=== PATIENT | male | born 1935 | race Two or more races ===

== ENCOUNTER 2023-12-11 15:51 | Emergency (ER) | payer OTHER ==
[~2023-12-11] VITALS: Ht 170.2 cm; Wt 70.5 kg
[2023-12-11 16:36] VITALS: TEMP 98.8
[2023-12-11 17:27] LABS: BASOPHILS % (AUTO) 0.7 % (0.0-2.0); EOSINOPHILS % (AUTO) 0.2 % (1.0-6.0); HEMATOCRIT 29.7 % (41-53); HEMOGLOBIN 9.4 g/dL (13.5-17.5); LYMPHOCYTES # (AUTO) 0.3 K/uL (1.0-4.8); LYMPHOCYTES % (AUTO) 4.4 % (22.0-44.0); MEAN CORPUSCULAR HEMOGLOBIN 20.5 pg (26.0-34.0); MEAN CORPUSCULAR HGB CONC 31.5 G/dL (31.0-37.0); MEAN CORPUSCULAR VOLUME 65 fL (80-100); MONOCYTES # (AUTO) 0.2 K/uL (0.1-1.0); MONOCYTES % (AUTO) 2.6 % (2.0-9.0); NEUTROPHILS # (AUTO) 7.3 K/uL (1.8-7.7); PLATELET COUNT (AUTO) 253 K/uL (150-450); RED BLOOD CELL COUNT(AUTO) 4.56 MIL/uL (4.50-5.90); WHITE BLOOD COUNT (AUTO) 7.9 K/uL (4.5-11.0)
[2023-12-11 17:28] LABS: NEUTROPHILS % (AUTO) 92.1 % (40.0-70.0)
[2023-12-11 17:39] LABS: CALCIUM, TOTAL 8.7 mg/dL (8.8-10.5); CREATININE 1.52 mg/dL (0.60-1.30); POTASSIUM 4.6 mmol/L (3.5-5.1)
[2023-12-11 17:47] LABS: RBC MORPHOLOGY COMMENT ABNORMAL RBC MORPH
[2023-12-11 17:48] LABS: TROPONIN I-HIGH SENSITIVITY 69 ng/L (<76)
[2023-12-11 19:01] VITALS: BP 137/79; PULSE 85; RESP 15; O2SAT 99
== END 2023-12-11 21:07 | disposition short-term general hospital (02) ==
LOC: EMS 15:51
DX: N28.9 Disorder of kidney and ureter, unspecified (principal); R55 Syncope and collapse; E11.9 Type 2 diabetes mellitus without complications; I10 Essential (primary) hypertension; Z88.1 Allergy status to other antibiotic agents
CPT/HCPCS: 71045; 80048; 83880; 84484; 85025; 93005; 99291; 36415-L1; 36415-TC

== ENCOUNTER 2024-07-31 13:37 | Emergency (ER) | payer OTHER ==
[~2024-07-31] VITALS: Ht 167.6 cm; Wt 69.1 kg
[2024-07-31 13:53] VITALS: TEMP 98.1
[2024-07-31 14:39] LABS: BASOPHILS % (AUTO) 1.1 % (0.0-2.0); EOSINOPHILS % (AUTO) 3.4 % (1.0-6.0); HEMATOCRIT 30.3 % (41-53); HEMOGLOBIN 9.9 g/dL (13.5-17.5); LYMPHOCYTES # (AUTO) 1.1 K/uL (1.0-4.8); LYMPHOCYTES % (AUTO) 21.2 % (22.0-44.0); MEAN CORPUSCULAR HEMOGLOBIN 21.4 pg (26.0-34.0); MEAN CORPUSCULAR HGB CONC 32.7 G/dL (31.0-37.0); MEAN CORPUSCULAR VOLUME 66 fL (80-100); MONOCYTES # (AUTO) 0.4 K/uL (0.1-1.0); NEUTROPHILS # (AUTO) 3.6 K/uL (1.8-7.7); NEUTROPHILS % (AUTO) 66.3 % (40.0-70.0); PLATELET COUNT (AUTO) 268 K/uL (150-450); RED BLOOD CELL COUNT(AUTO) 4.62 MIL/uL (4.50-5.90); RED CELL DISTRIBUTION WIDTH 18.1 % (11.5-14.5); WHITE BLOOD COUNT (AUTO) 5.4 K/uL (4.5-11.0)
[2024-07-31 14:46] LABS: ANION GAP 7 mmol/L (8-16); CALCIUM, TOTAL 8.4 mg/dL (8.8-10.5); CARBON DIOXIDE 25 mmol/L (22-29); CHLORIDE 105 mmol/L (98-107); CREATININE 1.59 mg/dL (0.60-1.30); GLOMERULAR FILTR. RATE CALC 41 mL/min (>60); GLUCOSE,RANDOM 236 mg/dL (70-110); POTASSIUM 3.7 mmol/L (3.5-5.1); SODIUM SERUM 137 mmol/L (136-145); UREA NITROGEN, BLOOD 33 mg/dL (7-18)
[2024-07-31 14:52] LABS: CREATINE KINASE, TOTAL ONLY 41 U/L (39-308)
[2024-07-31 14:53] LABS: B-TYPE NATRIURETIC PEPTIDE 64 pg/mL (0-100); PROTHROMBIN TIME 9.6 SEC (9.4-11.6)
[2024-07-31 14:54] LABS: TROPONIN I-HIGH SENSITIVITY 75 ng/L (<76)
[2024-07-31 15:18] LABS: LACTIC ACID 2.5 mmol/L (0.4-2.0)
[2024-07-31 15:28] LABS: RBC MORPHOLOGY COMMENT ABNORMAL RBC MORPH
[2024-07-31 20:25] VITALS: BP 127/75; PULSE 99; RESP 18; O2SAT 97
== END 2024-07-31 20:53 | disposition short-term general hospital (02) ==
LOC: EMS 13:42
DX: N28.9 Disorder of kidney and ureter, unspecified (principal); F03.90 Unspecified dementia, unspecified severity, without behavioral disturbance, psychotic disturbance, mood disturbance, and anxiety; E11.9 Type 2 diabetes mellitus without complications; I10 Essential (primary) hypertension; Z86.73 Personal history of transient ischemic attack (TIA), and cerebral infarction without residual deficits; Z88.1 Allergy status to other antibiotic agents
CPT/HCPCS: 71045; 80048; 82550; 83605; 83880; 84484; 85025; 85610; 85730; 93005; 99291; 36415-L1; 36415-TC

== ENCOUNTER 2024-08-13 14:30 | Emergency (ER) | payer OTHER ==
[~2024-08-13] VITALS: Ht 162.6 cm; Wt 54.5 kg
[2024-08-13 14:37] VITALS: BP 182/82; PULSE 72; RESP 18; TEMP 97.6; O2SAT 98
== END 2024-08-13 19:04 | disposition home or self-care (01) ==
LOC: EMS 14:30
DX: S00.03XA Contusion of scalp, initial encounter (principal); E11.9 Type 2 diabetes mellitus without complications; I10 Essential (primary) hypertension; F03.90 Unspecified dementia, unspecified severity, without behavioral disturbance, psychotic disturbance, mood disturbance, and anxiety; Z88.1 Allergy status to other antibiotic agents; W01.0XXA Fall on same level from slipping, tripping and stumbling without subsequent striking against object, initial encounter; Y93.89 Activity, other specified; Y92.89 Other specified places as the place of occurrence of the external cause; Y99.8 Other external cause status
CPT/HCPCS: 70450; 99284